=== PATIENT | male | born 1995 | race Caucasian/White ===

== ENCOUNTER → 2021-07-25 | Day surgery (SDC) | payer OTHER ==
[~2021-07-25] MED LIST: ACETAMINOPHEN-1 EAC4 PO; BUPIVACAINE HCL 0.5% INJ 30 ML VIAL INJ ONE; DEXAMETHASONE SOD PHOS INJ 4 MG/ML SDV ONE; FENTANYL CITRATE/PF 100MCG/2 ML INJ ONE; KETOROLAC TROMETHAMINE 30 MG/ML VIAL ONE; LIDOCAINE HCL 2% LOCAL INJ 5 ML SDV VIAL INJ ONE; MIDAZOLAM HCL 2 MG/2 ML VIAL ONE; MUPIROCIN 2% OINT 22 GM TUBE ONE; ONDANSETRON HCL INJ 2MG/ML 2ML 2 MG/ML VIAL ONE; POVIDONE IODINE 0.05% 0.05 % ML PO ONE; PROPOFOL IV EMULSION 10 MG/ML 20 ML VIAL ONE; SEVOFLURANE INHAL SOLN 250 ML PEN BTL ONE; SODIUM CHLORIDE 0.9% 50ML 50 ML ONE
[2021-07-25 09:10] VITALS: BP 126/75
== END | disposition home or self-care (01) ==
LOC: OR 07:03
PROVIDERS: ATTEND Plastic Surgery
DX: S64.491A Injury of digital nerve of left index finger, initial encounter (principal); W31.1XXA Contact with metalworking machines, initial encounter; Z88.8 Allergy status to other drugs, medicaments and biological substances; Z01.812 Encounter for preprocedural laboratory examination; Z20.822 Contact with and (suspected) exposure to COVID-19; Z86.16 Personal history of COVID-19
CPT/HCPCS: 64831; 64999; 69990; J0690; J1100; J1885; J2001; J2250; J2405; J2704; J3010; U0002